=== PATIENT | male | born 1990 | race Two or more races ===

== ENCOUNTER 2016-03-02 22:02 | Emergency (ER) | payer OTHER ==
[~2016-03-02] VITALS: Ht 180.3 cm; Wt 115.3 kg
[~2016-03-02 22:02] MED LIST: BENTYL20 MG PO; CLONIDINE HCL0.1 MG PO; ENDOCET 5-3251 EACH PO; LOMOTIL TABLET1 EACH PO; TRAZODONE HCL50 MG PO; ULTRAM50 MG PO; ZOFRAN ODT4 MG PO; ZOFRAN4 MG PO
[2016-03-02 23:51] LABS: HEMATOCRIT 41.5 % (38.0-50.0); MCH 28.8 PG (29.0-34.0); MCHC 34.9 G/DL (30.0-36.0); MCV 82.5 FL (86-99); PLATELET COUNT 179 K/uL (156-360); RBC DIS.WIDTH-CV 12.2 % (11.8-14.6); RBC DIS.WIDTH-SD 36.7 % (39-53); RED BLOOD COUNT 5.03 M/uL (4.00-5.50); WHITE BLOOD COUNT 10.7 K/uL (4.1-10.2)
[2016-03-02 23:57] LABS: INFLUENZA A VIRAL ANTIGEN NEGATIVE; INFLUENZA B VIRAL ANTIGEN NEGATIVE
[2016-03-03 00:06] LABS: CHLORIDE 99 mEq/L (99-109); POTASSIUM 3.1 mEq/L (3.7-5.4); SODIUM 134 mEq/L (136-147)
[2016-03-03 00:09] LABS: GLUCOSE 116 mg/dL (70-99)
[2016-03-03 00:10] LABS: ANION GAP 12 MEQ/L (2-14)
[2016-03-03 00:11] LABS: TOTAL BILIRUBIN 0.6 mg/dL (0.0-1.0)
[2016-03-03 00:12] LABS: ALKALINE PHOSPHATASE 65 IU/L (3-129); GFR ESTIMATE (CALCULATED) > 59 mL/min/
[2016-03-03 00:13] LABS: UREA NITROGEN (BUN) 9 mg/dL (9-23)
[2016-03-03 00:13] LABS: ADD MIUA? YES; BILIRUBIN NEGATIVE; BLOOD TRACE; COLOR YELLOW ((YELLOW)); GLUCOSE (STRIP) NEGATIVE; KETONES TRACE; LEUKOCYTES NEGATIVE; NITRITE NEGATIVE; PH, URINE 6.5 (5-8); PROTEIN (STRIP) TRACE; SPECIFIC GRAVITY 1.009 (1.000-1.030); UROBILINOGEN 0.2 MG/DL (0.2-1.0)
[2016-03-03 00:16] LABS: INTERNAL CONTROL VALID? YES; MONOSPOT (MONONUCLEOSIS SEROL) NEGATIVE
[2016-03-03] MEDS ORDERED: ZOFRAN ODT4 MG PO (00:28)
[2016-03-03 01:06] LABS: BACTERIA RARE; CASTS NONE SEEN /LPF; CRYSTALS NONE SEEN; EPITHELIAL CELLS RARE; MUCUS NONE SEEN; RED BLOOD CELLS NONE SEEN /HPF (0-5); UCUL ADDED? NO; WHITE BLOOD CELLS RARE /HPF (0-5)
[2016-03-03 01:14] VITALS: BP 142/80
== END 2016-03-03 01:14 | disposition home or self-care (01) ==
LOC: EME 22:02 → RME 22:02
PROVIDERS: Physician Assistant
DX: B34.9 Viral infection, unspecified (principal); F17.200 Nicotine dependence, unspecified, uncomplicated
CPT/HCPCS: 80048; 80053; 80076; 81003; 83690; 85027; 86308; 87502; 87651 90; 99281; 99284